=== PATIENT | female | born 1995 | race Two or more races ===

== ENCOUNTER 2017-10-16 09:46 | Emergency (ER) | payer OTHER ==
[~2017-10-16] VITALS: Ht 154.9 cm; Wt 72.6 kg
[2017-10-16 10:03] VITALS: BP 115/72
== END 2017-10-16 10:48 | disposition home or self-care (01) ==
LOC: ER 09:46
DX: S66.911A Strain of unspecified muscle, fascia and tendon at wrist and hand level, right hand, initial encounter (principal); J45.909 Unspecified asthma, uncomplicated; X58.XXXA Exposure to other specified factors, initial encounter; Y93.89 Activity, other specified; Y99.8 Other external cause status; Y92.89 Other specified places as the place of occurrence of the external cause
CPT/HCPCS: 29125; 73110; 73130